=== PATIENT | female | born 1965 | race Caucasian/White ===

== ENCOUNTER 2019-12-06 17:17 | Emergency (ER) | payer BC ==
--- OUTSIDE RECORDS SUMMARY | 2019-12-06 18:36 | XMS REPORT | Continuity of Care Document ---
:1965 External Reference #:[id number] Author Name Georges Martines Address [address] [place] [address] Care Team Providers Name Role Phone Aracelis Ramirez M.D. - Family Medicine Care Team Information Narcotics Agent Unavailable Problems Active Problems Provider Date Hyperlipidemia Aracelis Ramirez M.D. Onset: 10/25/2019 Migraine without aura, not refractory Aracelis Ramirez M.D. Onset: 10/25/2019 Gastroesophageal reflux disease Aracelis Ramirez M.D. Onset: 10/25/2019 Essential hypertension Aracelis Ramirez M.D. Onset: 10/25/2019 Social History Type Date Description Comments Sex Unknown Tobacco Use Start: Unknown Nonsmoker ETOH Use Social Alcohol Tobacco Use Start: Unknown Nonsmoker Smoking Status Reviewed: 11/23/19 Nonsmoker Exercise Type/Frequency Exercises regularly walking daily Allergies, Adverse Reactions, Alerts Active Allergies Reaction Severity Comments Date Amoxicillin Hives 10/25/2019 Azithromycin Itchy 10/25/2019 Keflex Hives 10/25/2019 Clindamycin Hives 10/25/2019 Medications Active Medications SIG Qnty Indications Ordering Provider Date Pravastatin Sodium 1 by mouth every 90tabs Aracelis Ramirez, 11/01/2019 20mg day M.D. Tablets Lisinopril 1 by mouth every 90tabs Aracelis Ramirez 10/25/2019 10mg Tablets day M.D. Flonase Allergy 1 spray to each Unknown Relief nostril prn 50mcg/Act Suspension Xopenex HFA inhale 2 puffs by Unknown 45mcg/Act mouth every 4 Aerosol hours as needed Omeprazole prn Unknown 20mg Capsules DR Melatonin 1 at at bedtime Unknown 5mg Capsules Calcium + D Daily Unknown [id number] Tablets Immunizations CPT Code Status Date Vaccine Lot # [id number] Given 10/25/2019 Tdap Tetanus, W Pertussis [id number] Vital Signs Date Vital Result Comment 11/23/2019 2:59pm BP Systolic 132 mmHg BP Diastolic 80 mmHg Heart Rate 75 /min Body Temperature 97.6 F Height 61.25 inches 5'1.25" Weight 217.00 lb BMI (Body Mass Index) 40.7 kg/m2 10/25/2019 6:52pm BP Systolic 136 mmHg BP Diastolic 88 mmHg Heart Rate 78 /min Body Temperature 97.9 F Respiratory Rate 17 /min Height 61.25 inches 5'1.25" Weight 216.00 lb BMI (Body Mass Index) 40.5 kg/m2 Results Test Acquired Date Facility Test Result H/L Range Note Ua - Non Micro (Fma) 10/30/2019 [facility] medicine Appearance yellow (607)- - Color clear Glucose, Urine (Fma/CMC/CTX) neg Bilirubin neg Ketones neg SP Grav 1.020 Blood neg PH 6.0 Protein neg Urobil 0.2 Nitrite neg Leukocytes (Fma/CMC/Centrex) neg CBC Electronic (a New) 10/30/2019 [facility] WBC 7.17 4.0-10.0 (607)- - RBC 4.73 3.93-6.0 Hemoglobin (Fma/CMC/CTX) 13.7 g/dL 12.0-17.0 Hematocrit (Fma/CMC/CTX) 41.8 % 35.0-50.0 Mean Corpuscular Vol 88.4 fL 80-95 Mean Corpuscular Hemoglobin 29.0 pg 25.6-32.2 Mean Corpuscular Hemo Concen 32.8 g/dL 32.2-36.0 Platelets 300 10^3/ul 163-400 RDW-CV 12.9 11.6-14.4 Mean Platelet Volume 10.5 fL 8.0-12.4 Absolute Neutrophils BLD 4.02 1.56-6.13 Absolute Lymphocytes 2.35 1.18-3.74 Absolute Monocytes BLD Auto 0.57 0.24-0.82 Absolute Eos Blood 0.14 0.04-0.54 Absolute Basophils 0.06 0.01-0.08 Neutrophil % 56.1 % 34.0-70.0 Lymph% 32.8 % 20.0-52.0 Monocytes % 7.9 % 5.0-12.0 Eos % 2.0 % 0.7-7.0 Basophil% 0.8 % 0-1.2 Comprehensive Metabolic 10/30/2019 [facility](fma) Sodium 142 mEq/L 134-149 Prof Potassium 4.7 mEq/L 3.6-5.5 Chloride 104 mEq/L 94-112 Carbon Dioxide 26 mEq/L 21-32 Glucose 101 mg/dL 70-105 BUN 16 mg/dL 6-26 Creatinine 0.7 mg/dL 0.6-1.4 BUN/Creat Ratio 22.9 CALC 8.0-36.0 Calcium 10.4 mg/dL 8.9-10.6 Total Protein 7.4 g/dL 6.4-8.3 Albumin 5.0 g/dL 3.8-5.5 Globulin 2.4 g/dL 2.0-4.8 A/G Ratio 2.1 CALC 0.6-2.3 Alk. Phosphatase 51 U/L 30-110 Alt (SGPT) 13 U/L 7-35 Ast (Sgot) 16 U/L 5-34 Total Bilirubin 0.5 mg/dL 0.2-1.3 GFR Non- >60 ml/min/1.73m^ >=60 GFR >60 ml/min/1.73m^ >=60 Lipid Profile 10/30/2019 [facility] Cano(fma) Cholesterol 301 mg/dL High 120-200 Triglycerides 185 mg/dL 30-200 HDL Cholesterol 70 mg/dL 30-85 LDL (Calculated) 194 CALC High 0-129 VLDL Cholesterol 37 mg/dL 0-50 HDL Risk Factor 4.3 CALC 0.0-4.4 Laboratory test finding 10/30/2019 [facility] Cano(fma) TSH 2.68 mIU/L 0.50-6.00 Procedures Date Code Description Status 10/13/2018 [id number] Mammogram Completed 10/13/2017 [id number] Colonoscopy Completed Medical Devices Description No Information Available Encounters Type Date Location Provider Dx Diagnosis Office Visit 10/25/2019 Main Office Aracelis Ramirez M.D. Z00.00 Encntr for general 6:40p adult medical exam w/o abnormal findings I10 Essential (primary) hypertension K21.9 Gastro-esophageal reflux disease without esophagitis J45.20 Mild intermittent asthma, uncomplicated G43.009 Migraine w/o aura, not intractable, w/o status migrainosus Z12.31 Encntr screen mammogram for malignant neoplasm of breast E78.5 Hyperlipidemia, unspecified Z23 Encounter for immunization Assessments Date Code Description Provider 11/23/2019 R21 Rash and other nonspecific skin eruption Georges Martines 10/30/2019 Z00.00 Encntr for general adult medical exam w/o Aracelis Ramirez M.D. abnormal findings 10/30/2019 I10 Essential (primary) hypertension Aracelis Ramirez M.D. 10/30/2019 E78.5 Hyperlipidemia, unspecified Aracelis Ramirez M.D. 10/25/2019 Z00.00 Encounter for general adult medical Aracelis Ramirez M.D. examination without abnormal findings 10/25/2019 I10 Essential (primary) hypertension Aracelis Ramirez M.D. 10/25/2019 K21.9 Gastro-esophageal reflux disease without Aracelis Ramirez M.D. esophagitis 10/25/2019 J45.20 Mild intermittent asthma, uncomplicated Aracelis Ramirez M.D. 10/25/2019 G43.009 Migraine without aura, not intractable, Aracelis Ramirez M.D. without status migrainosus 10/25/2019 Z12.31 Encounter for screening mammogram for Aracelis Ramirez M.D. malignant neoplasm of breast 10/25/2019 E78.5 Hyperlipidemia, unspecified Aracelis Ramirez M.D. 10/25/2019 Z23 Encounter for immunization Aracelis Ramirez M.D. Plan of Treatment Future Appointment(s):02/01/2020 4:20 pm - Aracelis [facility] M.D[facility] at [facility]11/23/2019 - Corina Martines-CR21 Rash and other nonspecific skin eruptionAllComments:Medication Management Patient Understands medications she's taking? Yes No Are there Barriers to Adherence? Yes No Has the patient been asked about herbal supplements and therapies, and OTC meds? Yes No Care Plan1. Patient has been queried about patient's goals/ preferences and functional/lifestyle goals at relevant visits. If relevant, describe: na2. Treatment goals as explained to the patient: aboveobservation and rx 3. Are there barriers to meeting treatment goals? Yes No If Yes , please describe:4. Self-Management goals as described to the patient: Yes No observe -- try topical emoillent like alexia cream if worsens will hold pravachol f/u if no better or rash worsens Functional Status Description No Information Available Mental Status Description No Information Available Referrals Description No Information Available
[2019-12-06 18:41] VITALS: BP 151/91
[2019-12-06] MEDS ORDERED: Ondansetron ODT TAB* 4 MG PO ONE (18:55)
[2019-12-06 19:09] LABS: Influenza A Molecular Negative (Negative); Influenza B Molecular Negative (Negative)
--- NOTE | 2019-12-06 19:20 | UC ---
FLU HPI - HPI Summary HPI Summary: 54-year-old woman comes in with chief complaint of influenza-like illness her last 1 day. Says fevers chills body aches some rhinorrhea some chest congestion with some wheezing. Patient also feels very nauseous. Took some Tylenol which did help the fevers. - History of Current Complaint Chief Complaint: UCRespiratory Stated Complaint: FLU SYMPTOMS Time Seen by Provider: 12/06/19 18:56 Hx Last Menstrual Period: 4 months ago Pain Intensity: 0 - Allergy/Home Medications Allergies/Adverse Reactions: Allergies Allergy/AdvReac Type Severity Reaction Status Date / Time amoxicillin Allergy Rash Verified 12/06/19 18:42 cephalexin [From Keflex] Allergy Rash Verified 12/06/19 18:42 erythromycin base Allergy Vomiting Verified 12/06/19 18:42 ENVIROMENTAL Allergy Unknown Unknown Uncoded 02/02/13 14:40 Reaction Details Home Medications: Home Medications Fluticasone Propionate (Nasal) [Flonase] 1 puff BOTH NARES BID 09/11/12 [ History Confirmed 12/06/19] Atorvastatin* [Lipitor 10 MG*] 1 tab PO DAILY 12/06/19 [History Confirmed ] Lisinopril TAB* [Prinivil TAB 10 MG*] 1 tab PO DAILY 12/06/19 [History Confirmed 12/06/19] Ondansetron ODT TAB* [Zofran 4 MG Odt TAB*] 4 mg PO Q6H PRN #10 tab.odt [Rx] PMH/Surg Hx/FS Hx/Imm Hx Previously Healthy: Yes Endocrine History: Dyslipidemia Cardiovascular History: Hypertension Respiratory History: Asthma - Surgical History Surgical History: Yes Surgery Procedure, Year, and Place: ectopic 20 yrs ago,wisdom teeth - Family History Known Family History: Positive: Non-Contributory - Social History Alcohol Use: Occasionally Substance Use Type: None Smoking Status (MU): Never Smoked Tobacco Review of Systems All Other Systems Reviewed And Are Negative: Yes Constitutional: Positive: Fever, Other - SEE HPI Eyes: Positive: Negative ENT: Positive: Sore Throat, Nasal Discharge Respiratory: Positive: Cough, Other - SEE HPI Cardiovascular: Positive: Negative Gastrointestinal: Positive: Nausea Motor: Positive: Negative Neurovascular: Positive: Negative Musculoskeletal: Positive: Arthralgia, Myalgia Neurological/Mental Status: Positive: Negative Psychological: Positive: Negative Is Patient Immunocompromised?: No Physical Exam Triage Information Reviewed: Yes Appearance: No Pain Distress, Well-Nourished, Ill-Appearing - MILD Vital Signs: Initial Vital Signs Temp 100.1 F 12/06/19 18:36 Pulse 115 12/06/19 18:36 Resp 18 12/06/19 18:36 BP 151/91 12/06/19 18:36 Pulse Ox 100 12/06/19 18:36 Vital Signs Reviewed: Yes Eye Exam: Normal Eyes: Positive: Conjunctiva Clear ENT: Positive: Pharynx normal, Nasal congestion, Nasal drainage, TMs normal Neck: Positive: Supple Respiratory: Positive: No respiratory distress, Wheezing Cardiovascular: Positive: RRR Musculoskeletal: Positive: Strength Intact, ROM Intact Neurological: Positive: Alert, Muscle Tone Normal Psychological: Positive: Age Appropriate Behavior Skin Exam: Normal Flu Course/Dx - Course Course Of Treatment: Patient reports she has a Xopenex inhaler at home which she will use to treat the wheezing. Otherwise she will treat symptomatically. Influenza swabs were negative. Get reevaluated if worse are not improving or any other questions or concerns. - Differential Dx/Diagnosis Provider Diagnosis: Influenza-like illness, Bronchitis with bronchospasm Discharge ED - Sign-Out/Discharge Documenting (check all that apply): Patient Departure All imaging exams completed and their final reports reviewed: No Studies - Discharge Plan Condition: Stable Disposition: HOME Prescriptions: Ondansetron ODT TAB* [Zofran 4 MG Odt TAB*] 4 mg PO Q6H PRN #10 tab.odt PRN Reason: Nausea/Vomiting Patient Education Materials: Acute Bronchitis (ED), Viral Syndrome (ED), Bronchospasm (ED) Forms: *Work Release Referrals: Aracelis Ramirez MD [Primary Care Provider] - Additional Instructions: FOLLOW UP WITH YOUR DOCTOR IF NOT COMPLETELY IMPROVED. GET REEVALUATED SOONER IF NOT IMPROVED OR WORSE OR ANY QUESTIONS OR CONCERNS. - Billing Disposition and Condition Condition: STABLE Disposition: Home
== END 2019-12-06 19:45 | disposition home or self-care (01) ==
LOC: UCEAST 17:17
DX: J45.909 Unspecified asthma, uncomplicated (principal); E78.5 Hyperlipidemia, unspecified; I10 Essential (primary) hypertension; J02.9 Acute pharyngitis, unspecified; M79.10 Myalgia, unspecified site; R11.0 Nausea; Z88.0 Allergy status to penicillin; Z88.1 Allergy status to other antibiotic agents; Z91.09 Other allergy status, other than to drugs and biological substances; Z79.52 Long term (current) use of systemic steroids; Z79.899 Other long term (current) drug therapy
CPT/HCPCS: 99212; A9270-GY; G0463